=== PATIENT | male | born 2000 | race Two or more races ===

== ENCOUNTER 2025-06-18 11:50 | Emergency (ER) | payer OTHER ==
[~2025-06-18] VITALS: Ht 180.3 cm; Wt 74.8 kg
[2025-06-18 11:56] VITALS: BP 118/77; TEMP 97.8
[2025-06-18] MEDS ORDERED: AZIT250T13 PO (12:58)
[2025-06-18 13:08] VITALS: O2SAT 98
== END 2025-06-18 13:08 | disposition home or self-care (01) ==
LOC: ER 11:57
DX: R05.9 Cough, unspecified (principal); R09.81 Nasal congestion
CPT/HCPCS: 71046

== ENCOUNTER 2025-07-28 21:14 | Emergency (ER) | payer OTHER ==
[~2025-07-28] VITALS: Ht 180.3 cm; Wt 72.6 kg
[~2025-07-28 21:14] MED LIST: AZIT250T13 PO
[2025-07-28 23:40] VITALS: TEMP 98.8
[2025-07-29 00:02] VITALS: O2SAT 99
[2025-07-29] MEDS: ALBUTEROL FS 2.5 MG/0.5 ML VIAL.NEB NEB ONE (00:02)
[2025-07-29] MEDS ORDERED: ALBUTEROL FS 2.5 MG/0.5 ML VIAL.NEB ONE (00:11)
[2025-07-29 00:17] VITALS: O2SAT 98
[2025-07-29] MEDS ORDERED: ALBU8.5H8 INH (01:16)
[2025-07-29 01:28] VITALS: BP 128/78; O2SAT 98
== END 2025-07-29 01:28 | disposition home or self-care (01) ==
LOC: ER 21:17
DX: J98.01 Acute bronchospasm (principal); J06.9 Acute upper respiratory infection, unspecified; Z20.822 Contact with and (suspected) exposure to COVID-19
CPT/HCPCS: 71045-TC